=== PATIENT | male | born 1980 | race Caucasian/White ===

== ENCOUNTER 2024-11-28 12:50 | Emergency (ER) | payer MEDICAID ==
[~2024-11-28] VITALS: Ht 188 cm; Wt 72.7 kg
[2024-11-28 13:11] VITALS: BP 131/77; PULSE 81; RESP 18; TEMP 98.3; O2SAT 97
--- NOTE | 2024-11-28 14:14 | DVH ---
EXAM: XY L KNEE 3V XRAY INDICATION: R/o fracture and dislocation TECHNIQUE: 3 views of the left knee COMPARISON: None FINDINGS/IMPRESSION: Indeterminate lucency projecting over the lateral tibial plateau to the lateral epiphysis, incomplete ly characterized. Consider further evaluation with CT. Altered projection limiting evaluation. Trace suprapatellar knee joint effusion.
== END 2024-11-28 15:15 | disposition left against medical advice (07) ==
LOC: ER 12:50 → EDBD 12:50 → ER 15:15
DX: M25.562 Pain in left knee (principal)
CPT/HCPCS: 73562

== ENCOUNTER 2024-11-28 18:53 | Emergency (ER) | payer MEDICAID ==
[~2024-11-28] VITALS: Ht 190.5 cm; Wt 82.0 kg
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
[2024-11-28] MEDS: IOHEXOL 350 MG/ML 100ML IJ ONE (20:46)
--- NOTE | 2024-11-28 20:57 | DVH ---
INDICATION: fall injury COMPARISON: None TECHNIQUE: CT of the right was performed without contrast. Volume transverse images were obtained and reconstructed in multiple planes using bone and soft tissue algorithms. CONTRAST: None Radiation Dose Information: CT Dose: CTDI volume is 7.75 mGy. Dose-length product is 286.3 mGy*cm FINDINGS: The alignment is normal. The joint spaces are normal. A compression fracture of the lateral tibial plateau measuring 3-4 mm. The soft tissues are normal. IMPRESSION: 1. Depression lateral tibial plateau with 3-4 mm medially of depression 8 and [address] All [address] scans at this medical facility are performed using dose modulation techniques as appropriat e to a performed exam including the following: Automated exposure control was utilized; adjustment of the MA and/or KV according to patient size; and use of iterative reconstruction technique.
[2024-11-28 23:07] VITALS: BP 137/89; PULSE 99; RESP 19; TEMP 98.9; O2SAT 97
== END 2024-11-28 23:59 | disposition home or self-care (01) ==
LOC: ER 18:53
DX: S82.142A Displaced bicondylar fracture of left tibia, initial encounter for closed fracture (principal); X58.XXXA Exposure to other specified factors, initial encounter; Y93.89 Activity, other specified; Y92.89 Other specified places as the place of occurrence of the external cause; Y99.8 Other external cause status
CPT/HCPCS: 29505; 73700